=== PATIENT | male | born 1990 | race Two or more races ===

== ENCOUNTER 2017-02-22 01:10 | Emergency (ER) | payer OTHER ==
[2017-02-22 04:06] VITALS: BP 108/60
--- NOTE | 2017-02-22 07:02 | ER ---
CHIEF COMPLAINT: Low back pain. HISTORY OF PRESENT ILLNESS: Gregory is a 27-year-old male, who presents to the emergency room with concerns of a low back pain. He states he gets muscle spasm and sharp pain in the right low back area that started about an hour and a half ago. He states he was getting out of bed and getting ready to go to work for the day when he noticed that he had some sharp discomfort in his right lower back area. He states he does not recall any injury. Denies any past medical history in regard to low back problems. He states he has been otherwise quite healthy. He states he does work at the [employer] and does lift things on a daily basis. However he has never had any complications with this. He states now with certain movements, kind of catches on him and he does get sharp discomfort. Denies any radiation down to the lower extremities. States it is localized just in the right lower back area. PAST MEDICAL HISTORY: Chronic illnesses: None. SOCIAL HISTORY: Current half pack per day smoker. No illicit drug use. No alcohol use. CURRENT MEDICATIONS: None. ALLERGIES: NO KNOWN DRUG ALLERGIES. PHYSICAL EXAMINATION: VITAL SIGNS: Blood pressure 108/60, temp of 98.9 pulse 56, respirations 20, weight 230 pounds, O2 is 97% on room air. GENERAL: Pleasant cooperative male. He is sitting comfortably on the examination table. MUSCULOSKELETAL: Spine and extremity muscles do appear to be symmetric. Muscle strength is present equal bilaterally. Range of motion, lumbar spine is limited secondary to patient discomfort. He has full left rotation of the lumbar spine with increased discomfort with right rotation. He is unable to do right lateral flexion secondary to the increased discomfort with the difficulty getting back into appropriate position. Does have some mild tenderness with palpation to the right lower paraspinal muscles around the L3-L4 region. No discomfort on the spine itself. Again it is all lateral. Neurovascular motor and sensory function are intact. Deep tendon reflexes are present bilaterally in both lower extremities. Sensation is intact. No focal deficits are noted. ASSESSMENT: LOW BACK STRAIN/MUSCLE SPASM. PLAN: I discussed the findings with the Gregory today. We will refer him if any imaging studies at this point in time. He was given 60 mg of Toradol along with 60 mg of Norflex IM x1. We do recommend him going home and resting today. I did recommend rest from doing any aggravating activity avoid any prolonged sitting or driving, bending and heavy lifting or twisting. I did also advise that he can use ice 20 minutes at a time for the discomfort and muscle spasms. I did recommend also avoid using heat for the first 24 hours. We will give Toradol tablets 10 mg one tab every 8 hours as needed for discomfort along with Flexeril 10 mg one every 8 hours for muscle spasms. I do encourage early mobility. He was given a referral form for physical therapy. I did also recommend while lying down that he does put a pillow under his knees for some relief. If he has any worsening symptoms or concerns throughout the evening or tomorrow, do recommend follow up or return to the ER. I also did recommend clinic appointment on to see how he is doing and determine if any further evaluation is warranted. I do recommend not returning to work today secondary to the muscle spasms and unable to lift heavy objects. He did verbalize understanding. We will give him a note for work today as well. BRITTANY/WILL /[id number]
[2017-02-22] MEDS ORDERED: Cyclobenzaprine 10 MG Tab PO ONE ×2 (10:00)
[2017-02-22] MEDS ORDERED: Ketorolac 10 MG Tab PO ONE ×2 (10:00)
[2017-02-22] MEDS ORDERED: Ketorolac 60 MG/2 ML SDV IM ONE (10:00)
== END 2017-02-22 02:10 | disposition home or self-care (01) ==
LOC: CC.ED 01:10
DX: S39.012A Strain of muscle, fascia and tendon of lower back, initial encounter (principal); X58.XXXA Exposure to other specified factors, initial encounter; Y93.89 Activity, other specified
CPT/HCPCS: 96372; 99283; A9270-GY; J1885; J2360

== ENCOUNTER 2019-05-28 21:51 | Emergency (ER) | payer SELFPAY ==
[2019-05-28] MEDS ORDERED: Cyclobenzaprine 10 MG Tab PO ONE (21:52)
[2019-05-28] MEDS ORDERED: Ketorolac 60 MG/2 ML SDV IM ONE (22:09)
[2019-05-28] MEDS ORDERED: Take Home: Cyclobenzaprine 10 MG Tab, 4 Tab Pack PO ONE (22:15)
--- NOTE | 2019-05-28 22:17 | EDM.PDOC ---
ED HPI GENERAL MEDICAL PROBLEM - General Chief Complaint: Back Pain or Injury Stated Complaint: "I have back pain" Time Seen by Provider: 05/28/19 22:00 Source of Information: Reports: Patient History Limitations: Reports: No Limitations - History of Present Illness INITIAL COMMENTS - FREE TEXT/NARRATIVE: Gregory is a 28 year old male who presents to the ED with c/o low back pain. He reports for the past week or so he has had a constant ache in his low mid back. He reports the tonight it became more of a sharp pain. Reports he has been having muscle spasms. He denies any known injury. Reports pain worsens with movement and standing. Reports he has been taking Tylenol and an OTC NSAID for back pain without relief. Denies any urinary symptoms. No saddle paresthesias or loss of bowel/bladder. No other complaints. Onset Date: 05/21/19 Duration: Getting Worse Location: Reports: Back (low) Quality: Reports: Ache, Sharp Improves with: Reports: Medication Worsens with: Reports: Movement Context: Reports: Activity Associated Symptoms: Reports: No Other Symptoms Treatments [employer]: Reports: Acetaminophen, NSAIDS - Related Data Allergies Allergy/AdvReac Type Severity Reaction Status Date / Time No Known Allergies Allergy Verified 02/22/17 04:03 Home Meds: Home Meds Cyclobenzaprine [Flexeril] 10 mg PO TID PRN #10 tab 05/28/19 [Rx] Ketorolac [Toradol] 10 mg PO TID PRN #15 tab 05/28/19 [Rx] predniSONE [Prednisone] 40 mg PO DAILY #10 tablet 05/28/19 [Rx] Past Medical History Musculoskeletal History: Reports: Other (See Below) - Past Surgical History Other Musculoskeletal Surgeries/Procedures:: Mid low back pain ED ROS GENERAL - Review of Systems Review Of Systems: ROS reveals no pertinent complaints other than HPI. ED EXAM,LOWER BACK PAIN/INJURY - Physical Exam Exam: See Below Exam Limited By: No Limitations General Appearance: Alert, WD/WN, No Apparent Distress, Obese Back Exam: Normal Inspection, Full Range of Motion, Muscle Spasm (mid/low back) , Paraspinal Tenderness (T10-L3). No: CVA Tenderness (L), CVA Tenderness (R), Vertebral Tenderness Extremities: Normal Inspection, Normal Range of Motion, Non-Tender, No Pedal Edema, Normal Capillary Refill Neurological: Alert, Normal Mood/Affect, Normal Dorsiflexion, CN II-XII Intact, Normal Plantar Flexion, Normal Gait, Normal Reflexes, No Motor/Sensory Deficits , Oriented x 3 Psychiatric: Normal Affect, Normal Mood Course - Orders/Labs/Meds Meds: Medications Discontinued Medications Generic Name Dose Route Start Last Admin Trade Name Freq PRN Reason Stop Dose Admin Cyclobenzaprine HCl 1 packet 05/28/19 22:15 Take Home: Cyclobenzaprine 10 Mg, 4 Tab Pack PO 05/28/19 22:16 ONETIME ONE Ketorolac Tromethamine 60 mg 05/28/19 22:09 Toradol IM 05/28/19 22:10 ONETIME ONE Departure - Departure Time of Disposition: 22:20 Disposition: Home, Self-Care 01 Condition: Good Clinical Impression: Low back pain Qualifiers: Chronicity: acute Back pain laterality: midline Sciatica presence: without sciatica Qualified Code(s): M54.5 - Low back pain - Discharge Information *PRESCRIPTION DRUG MONITORING PROGRAM REVIEWED*: Not Applicable *COPY OF PRESCRIPTION DRUG MONITORING REPORT IN PATIENT JOSH: Not Applicable Prescriptions: Cyclobenzaprine [Flexeril] 10 mg PO TID PRN #10 tab PRN Reason: Pain Ketorolac [Toradol] 10 mg PO TID PRN #15 tab PRN Reason: Pain predniSONE [Prednisone] 40 mg PO DAILY #10 tablet Instructions: Acute Back Pain, Adult Forms: ED Department Discharge Additional Instructions: - Flexeril 1 tablet every 8 hours as needed (muscle relaxer) - Toradol 1 tablet every 8 hours as needed for pain (NSAID) - Prednisone 40 mg daily x 5 days (steroid) - These medications can be hard on your stomach so be sure to take with food - Alternate ice/heat to affected area as needed for pain - Referral to PT - Stretch back as able - Follow up in clinic if symptoms worsen or do not seem to be improving with above modalities - If no improvement, will get imaging of low back - Assessment/Plan Plan: Please see nurses note for PMH, PSH, SH, & FH.
[2019-05-28 22:19] VITALS: BP 136/77; PULSE 80
== END 2019-05-28 22:30 | disposition home or self-care (01) ==
LOC: CC.ED 21:51
DX: M54.5 Low back pain (principal)
CPT/HCPCS: 96372; 99282; A9270; J1885

== ENCOUNTER 2025-01-23 20:32 | Emergency (ER) | payer SELFPAY ==
[2025-01-23 20:51] VITALS: BP 127/79; PULSE 82
[2025-01-23 21:34] LABS: CORONAVIRUS COVID-19 NAA NEGATIVE (NEGATIVE); INFLUENZA A NAA NEGATIVE (NEGATIVE); INFLUENZA B NAA POSITIVE (NEGATIVE); RESPIRATORY SYNCYTIAL VIR NAA NEGATIVE (NEGATIVE)
[2025-01-23] MEDS: methylPREDNISolone Sodium Succinate 40 MG/1 ML SDV IM ONE ×2 (21:34)
== END 2025-01-23 21:45 | disposition home or self-care (01) ==
LOC: CC.ED 20:32
DX: J10.1 Influenza due to other identified influenza virus with other respiratory manifestations (principal); Z79.899 Other long term (current) drug therapy
CPT/HCPCS: 0241U; 96372; 99283; J2919